=== PATIENT | female | born 2000 | race Caucasian/White ===

== ENCOUNTER 2021-06-07 13:49 | Outpatient (CLI) | payer BC | END 2021-06-07 13:50 | disposition home or self-care (01) | LOC: BICRAD 13:49 | PROVIDERS: ATTEND Family Medicine | DX: R05.9 Cough, unspecified (principal) | CPT/HCPCS: 71046 ==

== ENCOUNTER 2022-01-31 17:00 | Outpatient (CLI) | payer BC | END 2022-01-31 17:01 | disposition home or self-care (01) | LOC: SLEEPLAB 17:00 | PROVIDERS: ATTEND Physician Assistant | DX: G47.33 Obstructive sleep apnea (adult) (pediatric) (principal); R06.83 Snoring; R00.0 Tachycardia, unspecified; D64.9 Anemia, unspecified; G47.00 Insomnia, unspecified; I49.3 Ventricular premature depolarization | CPT/HCPCS: 95810 ==